=== PATIENT | female | born 1955 | race Caucasian/White ===

== ENCOUNTER 2019-05-21 06:52 | Day surgery (SDC) | payer BC ==
[~2019-05-21 06:52] MED LIST: Lactated Ringers 1,000 ML IV SCH; Sodium Chloride 0.9% 10 ML Syringe FLUSH PRN
[2019-05-21] MEDS ORDERED: ceFAZolin 1 GM Vial IVPUSH ONE (06:53)
[2019-05-21] MEDS ORDERED: Propofol 200 MG/20 ML SDV IV ONE (06:53)
[2019-05-21] MEDS ORDERED: Lidocaine 2% 100 MG/5 ML Syringe IVPUSH ONE (06:53)
--- NOTE | 2019-05-21 08:21 | PCM.PN ---
- General Info Date of Service: 05/21/19 - Review of Systems Systems Review Comment:: 63 y/o female here for initial screening colonoscopy. She is medically stable to proceed. Her recent H and P is reviewed and no significant changes are noted. I have discussed the proposed colonoscopy with the patient. Risks such as but not limited to bleeding and GI injury discussed and she agrees to proceed. Patient has a history of previous cardiac procedure. Will give antibiotics. - Patient Data Vitals - Most Recent: Last Vital Signs Temp 97.9 F 05/21/19 07:15 Pulse 54 L 05/21/19 07:15 Resp 16 05/21/19 07:15 BP 117/67 05/21/19 07:15 Pulse Ox 95 05/21/19 07:15 Weight - Most Recent: 293 lb 8 oz Med Orders - Current: Current Medications Lactated Ringer's (Ringers, Lactated) 1,000 mls @ 125 mls/hr IV ASDIRECTED JASON Last Admin: 05/21/19 07:50 Dose: 125 mls/hr Sodium Chloride (Saline Flush) 10 ml FLUSH ASDIRECTED PRN PRN Reason: Keep Vein Open - Problem List Review Problem List Initiated/Reviewed/Updated: Yes - My Orders Last 24 Hours: My Active Orders 05/20/19 Dinner Nothing Per Oral Diet [DIET] 05/21/19 06:45 Patient Status [ADT] Routine Blood Glucose Check, Bedside [RC] ONETIME Patient to Empty Bladder [RC] ASDIRECTED Verify Patient Consent Obtain [RC] ASDIRECTED Lactated Ringers [Ringers, Lactated] 1,000 ml IV ASDIRECTED Sodium Chloride 0.9% [Saline Flush] 10 ml FLUSH ASDIRECTED PRN Peripheral IV Insertion Adult [OM.PC] Routine - Assessment Assessment:: Colon cancer screening - Plan Plan:: Colonoscopy
--- NOTE | 2019-05-21 08:55 | PCM.OPNOTE ---
- General Post-Op/Procedure Note Date of Surgery/Procedure: 05/21/19 Operative Procedure(s): Colonoscopy with Polypectomy Findings: Moderate Sigmoid Diverticulosis Small transverse colon polyp Pre Op Diagnosis: Colon Cancer Screening Post-Op Diagnosis: Colon Polyp. Sigmoid Diverticulosis Anesthesia Technique: MAC Primary Surgeon: Rex Vides Pathology: Transverse Colon Polyp Output, Urine Amount: 0 EBL in mLs: 0 Complications: None Condition: Good
--- NOTE | 2019-05-21 12:01 | OR ---
DATE OF OPERATION: 05/21/2019 SURGEON: Rex Vides MD PREOPERATIVE DIAGNOSIS: Colon cancer screening. POSTOPERATIVE DIAGNOSIS: Transverse colon polyp, sigmoid diverticulosis. OPERATION PERFORMED: Colonoscopy with polypectomy. INDICATIONS FOR SURGERY: This 63-year-old female presents today for her initial screening colonoscopy. She denies any recent change in bowel habits or family history of colon cancer. FINDINGS: The patient has a single small polyp in the mid transverse colon. This was a 5 mm polyp which was sessile in configuration. The patient also has moderate sigmoid diverticulosis without acute inflammation. DESCRIPTION OF PROCEDURE: The patient was taken to the procedure room. She was given intravenous sedation, and with her in the left lateral decubitus position, digital rectal exam was performed showing no rectal masses. The Olympus colonoscope was inserted into the rectum. Retroflexed examination of the rectal canal was performed. The scope was carefully advanced through the colon until a polyp in the transverse colon was identified. This was removed with a cautery snare and retrieved. This examination was continued until the cecum was reached. Cecal acquisition was confirmed by noting the normal internal cecal anatomy including the appendiceal orifice and ileocecal valve. After carefully examining the cecum, the scope was slowly withdrawn sequentially re-examining the colonic segments until the entire colon and rectum had been fully examined. The scope was removed and the patient was taken from the procedure room in satisfactory condition. ESTIMATED BLOOD LOSS: 0. COMPLICATIONS: None. PROGNOSIS: Good. /[id number] [id number]
== END 2019-05-21 09:50 | disposition home or self-care (01) ==
LOC: FB.SDS 06:52
PROVIDERS: ATTEND Surgery
DX: Z12.11 Encounter for screening for malignant neoplasm of colon (principal); K63.5 Polyp of colon; K57.30 Diverticulosis of large intestine without perforation or abscess without bleeding; I10 Essential (primary) hypertension; I27.20 Pulmonary hypertension, unspecified; E78.00 Pure hypercholesterolemia, unspecified; E03.9 Hypothyroidism, unspecified; E11.39 Type 2 diabetes mellitus with other diabetic ophthalmic complication; H40.9 Unspecified glaucoma; H42 Glaucoma in diseases classified elsewhere; F33.40 Major depressive disorder, recurrent, in remission, unspecified; G47.33 Obstructive sleep apnea (adult) (pediatric); Z88.8 Allergy status to other drugs, medicaments and biological substances; Z88.5 Allergy status to narcotic agent; Z99.89 Dependence on other enabling machines and devices; Z99.81 Dependence on supplemental oxygen; Z79.51 Long term (current) use of inhaled steroids; Z79.82 Long term (current) use of aspirin; Z79.84 Long term (current) use of oral hypoglycemic drugs; Z79.899 Other long term (current) drug therapy
CPT/HCPCS: 00812; 45385; 82962; 88305; J0690; J2001; J2704; J7120

== ENCOUNTER 2024-05-21 07:00 | Day surgery (SDC) | payer BC, MEDICARE ==
[~2024-05-21 07:00] MED LIST changes: -Lactated Ringers 1,000 ML IV SCH
[2024-05-21] MEDS ORDERED: Phenylephrine 0.5% Nasal Spray 15 ML Bot NAS ONE (07:01)
[2024-05-21] MEDS ORDERED: Lidocaine 2% 100 MG/5 ML Syringe IVPUSH ONE (07:01)
[2024-05-21] MEDS ORDERED: Propofol 200 MG/20 ML SDV IV ONE (07:01)
[2024-05-21] MEDS: Lactated Ringers 1,000 ML IV SCH (07:45)
[2024-05-21] MEDS: Simethicone Drops 40 MG/0.6 ML 30 ML Bottle ONE (08:14)
== END 2024-05-21 09:57 | disposition home or self-care (01) ==
LOC: FB.SDS 07:00
PROVIDERS: ATTEND Surgery
DX: Z12.11 Encounter for screening for malignant neoplasm of colon (principal); D12.2 Benign neoplasm of ascending colon; D12.3 Benign neoplasm of transverse colon; K57.30 Diverticulosis of large intestine without perforation or abscess without bleeding; E11.59 Type 2 diabetes mellitus with other circulatory complications; E11.69 Type 2 diabetes mellitus with other specified complication; I10 Essential (primary) hypertension; E78.5 Hyperlipidemia, unspecified; F32.9 Major depressive disorder, single episode, unspecified; E03.9 Hypothyroidism, unspecified; E66.9 Obesity, unspecified; Z86.010 Personal history of colon polyps
CPT/HCPCS: 00811; 45385; 82947; 88305; A9270; J2704; J7120